=== PATIENT | female | born 1980 | race Caucasian/White ===

== ENCOUNTER 2017-08-07 07:56 | Emergency (ER) | payer OTHER ==
[~2017-08-07] VITALS: Ht 154.9 cm; Wt 52.2 kg
[~2017-08-07 07:56] MED LIST: HYDROCODON-ACE1 EAC7 PO; IBUPROFEN 800800 M1; IBUPROFEN 800800 M1 PO; MOM; NORCO 5-325 TA1 EACH PO; PERCOCET; SENNA PO; TRINATE TABLET1 TAB PO; VENTOLIN HFA INH8 GM PO; ZOVIA 1-35E1 EACH PO
[2017-08-07] MEDS ORDERED: TRIAMCINOLONE A80 G2 TOP (08:19)
== END 2017-08-07 10:48 | disposition home or self-care (01) ==
LOC: ER 07:56
DX: L50.9 Urticaria, unspecified (principal); F10.99 Alcohol use, unspecified with unspecified alcohol-induced disorder; Z88.5 Allergy status to narcotic agent

== ENCOUNTER 2021-01-24 10:05 | Emergency (ER) | payer OTHER ==
[~2021-01-24] VITALS: Ht 165.1 cm; Wt 57.6 kg
[~2021-01-24 10:05] MED LIST changes: +TRIAMCINOLONE A80 G2 TOP
[2021-01-24 10:50] LABS: ABSOLUTE NEUTROPHILS 14.1 thou/uL (1.4-8.2); BASOPHILS 0.2 % (0.0-2.0); EOSINOPHILS 0.1 % (0.0-3.0); HEMATOCRIT 35.2 % (37.0-47.0); HEMOGLOBIN 11.6 gm/dL (12.0-15.0); LYMPHOCYTES 3.7 % (24.0-44.0); MCH 31.5 pg (26.0-34.0); MCHC 33.1 g/dL (28.0-37.0); MCV 95.1 fL (80.0-100.0); MONOCYTES 5.9 % (1.0-8.0); PLATELET COUNT 193 thou/uL (150-400); POLYS 90.1 % (36.0-66.0); WBC 15.7 thou/uL (4.0-11.0)
[2021-01-24 10:54] LABS: CALCIUM 9.2 mg/dL (8.5-10.1); POTASSIUM 3.8 mmol/L (3.5-5.1)
[2021-01-24 10:54] LABS: URINE BILIRUBIN NEGATIVE (Negative); URINE BLOOD 2+ (Negative); URINE CLARITY CLOUDY; URINE COLOR YELLOW; URINE GLUCOSE-RANDOM* NEGATIVE (Negative); URINE KETONES 1+ (Negative); URINE NITRITE-REFLEX NEGATIVE (Negative); URINE PROTEIN (DIPSTICK) 1+ (Negative); URINE UROBILINOGEN 0.2 E.U./dl (0.2-1.0)
[2021-01-24 10:55] LABS: URINE LEUKOCYTES-REFLEX 3+ (Negative)
[2021-01-24 11:00] LABS: ALBUMIN 3.1 g/dL (3.4-5.0); TOTAL BILIRUBIN 0.8 mg/dL (0.2-1.0); TOTAL PROTEIN 7.3 g/dL (6.4-8.2)
[2021-01-24 11:05] LABS: BACTERIA-REFLEX 1-9 Few /HPF (None Seen); CRYSTALS None Seen /LPF (None Seen); SQUAMOUS >10 Many /LPF (0-3); URINE RBC None Seen /HPF (0-2); URINE WBC-REFLEX >25 Many /HPF (0-5)
[2021-01-24] MEDS ORDERED: ZOFRAN ODT4 MG PO (12:24)
[2021-01-24] MEDS ORDERED: KEFLEX500 M1 PO (12:24)
[2021-01-24] MEDS ORDERED: NORCO7.5 PO (12:24)
[2021-01-24 13:09] VITALS: BP 100/58
== END 2021-01-24 13:09 | disposition home or self-care (01) ==
LOC: ER 10:05
PROVIDERS: Emergency Medicine
DX: N10 Acute pyelonephritis (principal); Z79.1 Long term (current) use of non-steroidal anti-inflammatories (NSAID); Z79.899 Other long term (current) drug therapy; Z88.5 Allergy status to narcotic agent; Z20.822 Contact with and (suspected) exposure to COVID-19